=== PATIENT | male | born 2000 | race Two or more races ===

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

== ENCOUNTER 2024-10-07 08:07 | Outpatient (AMB) | payer OTHER, SELFPAY ==
--- OUTSIDE RECORDS SUMMARY | 2024-10-07 08:11 | XMS_ITS ---
Author Name [facility] Organization Unknown History of Medication Use Medication Directions Dispensed Refills Start Date End Date Stat No known medications No known medications 05/23/2023 active cefTRIAXone (ROCEPHIN) injection 500 mg 05/16/2023 complete d
--- NOTE | 2024-10-07 08:15 | MHC.OFFWIV ---
Intake Vital Signs 10/07/24 08:16 Weight 171 lb BP 110/70 Blood Pressure Location Rt brachial Position Sitting Pulse 66 Pulse Source Pulse Oximeter Temp 98.5 F Temp Source Oral Pulse Oximetry (%) 98 Oxygen Delivery Method Room Air Intake Visit Reasons: [employer] ?Strep Intake Note: Patient here for sore throat that started about 3-4 days ago. Patient Tobacco Use Status: Never used Tobacco Allergies No Known Allergies Allergy (Verified 10/07/24 08:17) Do you need a note to return to daycare/school/sports/work: No HPI HPI Comments History of Present Illness Details History The patient is a 24-year-old male presenting with a sore throat. The sore throat has been accompanied by mild fever peaking at 99.6?F, described as discomfort with intermittent sensations of hot and cold. The patient denies any cough, headache, or ear pain but confirms difficulty swallowing. No sinus pain is reported. Examination suggests a possible early infection in the left ear, which correlates with the current episode of streptococcal pharyngitis. No prior interventions for strep throat were identified, and the current history does not report the use of antibiotics or other specific sore throat treatments. Physical Exam General: Cooperative, healthy appearing, comfortable and no acute distress Orientation/consciousness: Patient oriented x3 Limitations: No limitations Head: Normal to inspection Ears: Hearing grossly normal bilaterally, external ears normal and TM's normal right, TM left has small purulent effusion Nose: Normal external nose present, Normal nares present and No nasal discharge present Face and sinus: Normal facial exam and Yes sinuses nontender Mouth: Normal oral and palatal mucosa present and moist mucous membranes Throat: Yes tonsils normal, Yes uvula midline. Posterior oropharynx erythema, no exudates Eyes: Appearance normal, both eyes and all related structures Neck: Normal visual inspection Respiratory: Clear to auscultation bilaterally. Normal respiratory effort, able to speak in complete sentences, Skin: No rashes or lesions noted Neuro: Patient oriented x3 Extremities: Normal to inspection and Yes no clubbing, cyanosis or edema PFSH Social History Patient Tobacco Use Status: Never used Tobacco Review of Systems Const All systems reviewed & are unremarkable except as noted in HPI and below Physical Exam Vital Signs: Last Vital Signs Temp 98.5 F 10/07/24 08:16 Pulse 66 10/07/24 08:16 BP 110/70 10/07/24 08:16 Pulse Ox 98 12/13/24 08:16 Oxygen Delivery Method Room Air 10/07/24 08:16 Results AMB Rapid Strep AMB Rapid Strep Positive Last Edit by PATITO Eugene on 10/07/24 08:29 Results Reviewed Results Reviewed: Laboratory Last Values Strep Scn Rapid Clinic Positive 10/07/24 08:28 Assessment & Plan Assessment & Plan (1) Strep pharyngitis: Code(s): J02.0 - Streptococcal pharyngitis Plan: Plan - Pt had positive rapid strep test. Prescribed Amoxicillin-Clavulanate Augmentin), to be taken twice daily for 10 days, to address both streptococcal pharyngitis and cover the potential early left otitis media. - Educate the patient regarding the administration of antibiotics with food to mitigate gastrointestinal side effects. - Recommend supportive measures such as warm tea with honey or cold options like popsicles to alleviate throat discomfort. - Advise use of chloroceptic throat spray as needed for additional symptom relief. - Instruct the patient to take two doses of antibiotics today, starting treatment promptly. - Antibiotic prescription sent to [facility] pharmacy on [address] and [address]. Patient was informed and verbally consented to the use of an ambient scribe for clinic note documentation during this visit (2) Otitis media: Code(s): H66.90 - Otitis media, unspecified, unspecified ear Qualifiers: Otitis media type: suppurative Chronicity: acute Laterality: left Recurrence: non-recurrent Spontaneous tympanic membrane rupture: without spontaneous rupture Qualified Code(s): H66.002 - Acute suppurative otitis media without spontaneous rupture of ear drum, left ear Plan: as above Orders: Orders AMB Rapid Strep Screen Today Z13.9 - Encounter for screening, unspecified Medications: New amoxicillin-pot clavulanate 875-125 mg 1 tab PO Q12H 20 tabs 0RF Coding Level of Care Code New Pt Level 4 (12914) Diagnoses Strep pharyngitis J02.0 Non-recurrent acute suppurative otitis media of left ear without spontaneous rupture of tympanic membrane H66.002 Otitis media type: suppurative Chronicity: acute Laterality: left Recurrence: non-recurrent Spontaneous tympanic membrane rupture: without spontaneous rupture
[2024-10-07 08:16] VITALS: BP 110/70; PULSE 66; TEMP 36.9; O2SAT 98
== END 2024-10-07 10:06 | disposition home or self-care (01) ==
PROVIDERS: PCP Physician Assistant Medical; Visit Provider Physician Assistant
DX: J02.0 Streptococcal pharyngitis (principal); H66.002 Acute suppurative otitis media without spontaneous rupture of ear drum, left ear; Z13.9 Encounter for screening, unspecified

== ENCOUNTER → 2024-10-07 08:07 | Outpatient (BNVA) | payer OTHER, SELFPAY | PROVIDERS: PCP Physician Assistant Medical; Visit Provider Physician Assistant | DX: J02.0 Streptococcal pharyngitis (principal); H66.002 Acute suppurative otitis media without spontaneous rupture of ear drum, left ear | CPT/HCPCS: 87880 ==